=== PATIENT | male | born 1955 | race Caucasian/White ===

== ENCOUNTER 2018-12-07 15:16 | Inpatient (IN) ==
[2018-12-07 15:59] LABS: BASO# 0.02 X1000 (0.0-0.2); BASO% 0.1 % (0.0-0.8); EOS# 0.14 X1000 (0.0-0.7); EOS% 0.8 % (0.0-10.0); HEMATOCRIT 33.1 % (42.0-52.0); HEMOGLOBIN 11.9 g/dL (14.0-18.0); IMM GRAN# 0.06 X1000 (0.0-0.04); IMM GRAN% 0.3 % (0.0-0.5); LYMPH# 1.01 X1000 (1.2-3.4); LYMPH% 5.7 % (20.5-51.1); MCH 31.2 PG (27-31); MCV 86.9 FL (81-99); MONO% 7.9 % (1.7-9.3); MPV 11.4 FL (7.4-10.4); NEUT# 15.13 X1000 (1.4-6.5); NEUT% 85.2 % (42.2-75.2); PLT 168 X1000 (130-400); RBC 3.81 XMIL (4.7-6.1); RDW 11.7 % (11.5-14.5); WBC 17.76 X1000 (4.8-10.8)
[2018-12-07 16:25] LABS: INFLUENZA A NEGATIVE (NEGATIVE); INFLUENZA B NEGATIVE (NEGATIVE)
[2018-12-07 16:25] LABS: ALBUMIN 3.9 g/dL (3.5-5.0); CALCIUM 8.8 mg/dL (8.8-10.2); POTASSIUM 4.9 mmol/L (3.5-5.1); TOTAL BILIRUBIN 0.5 mg/dL (0.20-1.00); TOTAL PROTEIN 7.6 g/dL (6.3-8.3)
[2018-12-07] MEDS ORDERED: NS 1,000 ML IV ONE ×2 (16:29→20:40)
[2018-12-07 16:32] LABS: BANDS 3 % (0-1); EOS 1 % (1-10); LYMPHS 4 % (21-51); MONO 5 % (1-9); SEGS 87 % (42-75)
[2018-12-07 16:33] LABS: HYPOCHROM 1+
--- NOTE | 2018-12-07 16:36 | Diag Imaging Result Doc PS360 ---
CHEST-2 VIEWS - 12/07/2018 INDICATION: epigastric pain with hx of 2 mi's COMPARISON: 10/29/2018 FINDINGS: Lung volumes are low. No focal infiltrates, pneumothorax, or pleural effusion. Heart size and pulmonary vascularity is normal. IMPRESSION: No acute disease or change from prior. Electronically signed by Cesario Tobias 12/07/2018 4:33 PM
[2018-12-07] MEDS ORDERED: VANCOMYCIN 1 GM/NS 1 GM/250 ML IVPB IV ONE (16:47)
[2018-12-07 17:01] LABS: CK INDEX 2.2 (0.0-2.5); CK-MB 13.48 ng/mL (0.0-5.0)
[2018-12-07] MEDS ORDERED: SODIUM CHLORIDE 0.9% INJ ONE (17:01)
[2018-12-07] MEDS ORDERED: ZOFRAN IM ONE (17:01)
[2018-12-07] MEDS ORDERED: PROTONIX IV ONE (17:01)
[2018-12-07] MEDS ORDERED: ZOFRAN IV ONE (17:09)
--- NOTE | 2018-12-07 17:30 | Diag Imaging Result Doc PS360 ---
TOE(S)-LEFT - 12/07/2018 INDICATION: OM TECHNIQUE: Three views COMPARISON: None FINDINGS: There has already been amputation of the second toe. There is nonspecific soft tissue swelling about the great toe. No soft tissue gas or foreign body. No fractures or bony erosions. IMPRESSION: Mild nonspecific soft tissue swelling about the great toe but no bony abnormalities. Electronically signed by Cesario Tobias 12/07/2018 5:27 PM
[2018-12-07] MEDS ORDERED: TYLENOL PO ONE (17:46)
[2018-12-07 19:13] LABS: OCCULT BLOOD 1 NEGATIVE (NEGATIVE)
[2018-12-07 19:28] LABS: CK-MB 10.66 ng/mL (0.0-5.0)
--- NOTE | 2018-12-07 20:12 | Diag Imaging Result Doc PS360 ---
CT ABDOMEN/PELVIS W/O CONTRAST - 12/07/2018 INDICATION: gallstone COMPARISON: 03/13/2016 FINDINGS: The lung bases are clear and the heart size is normal. There is no evidence of gallstone or biliary obstruction. The gallbladder appears normal. There is an IVC filter in good position stable from prior. No radiodense renal stones. No hydronephrosis or hydroureter. Urinary bladder and rectum are normal. No bowel obstruction or inflammation. There are moderate degenerative changes of the spine. No acute or suspicious bony lesion. IMPRESSION: No acute disease or change from prior. This exam was performed using automated exposure control, adjustment of mA or kV according to patient size, and/or use of iterative reconstruction technique Electronically signed by Cesario Tobias 12/07/2018 8:09 PM
[2018-12-07] MEDS ORDERED: ZOFRAN IV PRN (20:46)
[2018-12-07] MEDS ORDERED: ZOSYN 2.25 GM in NS 50 ML IV SCH (22:00)
--- NOTE | 2018-12-07 22:56 | PROVIDER DOCUMENTATION ---
This chart was entered by Radha Jackson Scribe, acting as scribe for Steph Quiles MD. HPI-General Adult - General Chief Complaint: Fever Stated Complaint: REFLUX / CHILLS Time Seen by Provider: 12/07/18 16:28 Source: patient Allergies/Adverse Reactions: Patient Allergies Allergy/AdvReac Type Severity Reaction Status Date / Time No Known Allergies Allergy Verified 06/26/17 23:21 Home Medications: Home Medication List Medication Instructions Recorded Confirmed Last Taken Type Carvedilol [Coreg] 12.5 mg PO BID 03/13/16 10/12/18 07/19/16 09:30 History Nitroglycerin [Nitrostat] 0.4 mg SL DIRECTED PRN 03/13/16 10/12/18 01/10/16 History Aspirin EC 81 mg PO DAILY 04/19/16 10/12/18 07/19/16 09:30 History LISINOpril [Prinivil] 10 mg PO DAILY 07/13/16 10/12/18 07/19/16 09:30 History Atorvastatin Calcium [Lipitor] 40 mg PO HS 06/27/17 10/12/18 Unknown History Isosorbide Mononitrate [Imdur] 30 mg PO DAILY 06/27/17 10/12/18 Unknown History Amlodipine [Norvasc] 5 mg PO DAILY 10/12/18 10/12/18 Unknown History Famotidine [Pepcid] 20 mg PO DAILY 10/12/18 10/12/18 Unknown History Insulin Detemir [Levemir] 60 units SQ DAILY 10/12/18 10/12/18 Unknown History Prasugrel [Effient] 10 mg PO DAILY 10/12/18 10/12/18 Unknown History - History of Present Illness -Gen Adult Nature of Presenting Problems: Pt sts that he has had abd pain, n/v, fever and chills for the last 8 hrs. He s ts that he just feels achy all over and has fatigue. Pt has hx of 3 stents, Bladder cancer, DM and HTN. Pt has had amputations to all toes on R foot and 2nd toe on L foot. Has ulcers to L foot on great toe and along dorsal underside, pt sts that he has an appt with wound care next week. Location of Pain/Injury: reports: abdomen Pain Radiation: reports: no radiation Quality of Pain: reports: aching Severity: reports: moderate Onset/Duration: reports: this morning Timing: reports: still present Context/Activities at Onset: reports: none Modifying Factors: improves with: nothing Associated Symptoms: reports: fever/chills, nausea, vomiting, weakness. denies: diarrhea, headaches, syncope Similar Symptoms Previously?: No Recently seen or treated by another doctor?: No Review of Systems - Adult - REVIEW OF SYSTEMS - ADULT Constitutional: reports: chills, fever Eyes: reports: no symptoms reported Ears, Nose, Mouth & Throat: reports: no symptoms reported Cardiovascular: reports: no symptoms reported. denies: chest pain, edema Respiratory: reports: no symptoms reported. denies: cough, shortness of breath, wheezing Gastrointestinal: reports: abdominal pain, nausea, vomiting. denies: constipation, diarrhea Genitourinary: reports: no symptoms reported Musculoskeletal: reports: no symptoms reported Integumentary: reports: no symptoms reported Neurological: reports: no symptoms reported. denies: dizziness/vertigo, headac he/migraines Psychiatric: reports: no symptoms reported Endocrine: reports: no symptoms reported Hematologic/Lymphatic: reports: no symptoms reported Allergic/Immunologic: reports: no symptoms reported All Other Systems: Reviewed and Negative Past History - Adult - PAST MEDICAL HISTORY-ADULT Review of Records: reports: Old Records Reviewed, Nursing Assessment Review, M edications Reviewed, Social history reviewed & non-contributory. Cardiovascular: reports: blood clots (PE), CAD, HTN Psychiatric: reports: depression Endocrine/Immune: reports: Diabetes - PRIOR SURGERIES/PROCEDURES Surgical/Procedure History: reports: orthopedic (extremity), other ([employer]) - IMMUNIZATION STATUS Childhood Immunizations: See Nurse Assessment Flu Vaccine: See Nurse Assessment - FAMILY HISTORY Family History: reviewed, not pertinent - SOCIAL HISTORY Smoking: denies, non-smoker Substance Use: none/never Alcohol Use Frequency: never Physical Exam-General - PHYSICAL EXAM-ADULT Initial Vital Signs Reviewed: Yes - CONSTITUTIONAL General Appearance: appears well, alert, no apparent distress - EYES Eyes: PERRL/EOMI, pink conjunctivae - HEAD, EARS, NOSE, MOUTH & THROAT HENMT: normocephalic/atraumatic, moist mucous membranes, normal ENT inspection, TMs normal - NECK Neck: non-tender, full range of motion, supple, normal inspection - RESPIRATORY Respiratory: lungs clear - CARDIOVASCULAR Cardiovascular: normal peripheral pulses, no edema, tachycardia (104) - GASTROINTESTINAL (ABDOMEN) Abdominal Exam: normal bowel sounds, non tender, soft - LYMPHATIC Lymphatic: no adenopathy - MUSCULOSKELETAL Back Exam: normal inspection, no CVA tenderness, no vertebral tenderness Extremity: other (pt has had amputation of all toes on R foot and 2nd toe on L foot. Pt has pencil sided ulcerations both on L great toe and dorsal underside of foot as well. Ulceration is black w/ callous around it.) - SKIN Integumentary: normal color, warm/dry - NEUROLOGIC Neurologic: grossly normal - PSYCHIATRIC Psych/Mental Status: normal mood/affect, normal thought content, normal thought process, oriented x 3 Progress - PLAN OF CARE/RESULTS Progress/Plan/Lab Results: Vital Signs - 8 hr 12/07/18 15:28 Temperature 100.4 F H Pulse Rate 104 H Respiratory Rate 20 Blood Pressure 163/64 O2 Sat by Pulse Oximetry 98 Laboratory Results - last 24 hr 12/07/18 12/07/18 12/07/18 15:30 15:41 15:41 WBC RBC Hgb Hct MCV MCH MCHC RDW Std Deviation Plt Count MPV Immature Gran % (Auto) Neut % (Auto) Lymph % (Auto) [place] % (Auto) Eos % (Auto) Baso % (Auto) Immature Gran # (Auto) Neut # (Auto) Lymph # (Auto) [place] # (Auto) Eos # (Auto) Baso # (Auto) Segmented Neutrophils Band Neutrophils Lymphocytes Monocytes Eosinophils Hypochromia Sodium Potassium Chloride Carbon Dioxide Anion Gap BUN Creatinine Estimated GFR/1.73 m2 BUN/Creatinine Ratio Glucose Calculated Osmolality Calcium Total Bilirubin AST ALT Alkaline Phosphatase Creatine Kinase 626 H Troponin T 0.095 H Total Protein Albumin Globulin Albumin/Globulin Ratio Influenza A (Rapid) NEGATIVE Influenza B (Rapid) NEGATIVE 12/07/18 12/07/18 15:41 15:41 WBC 17.76 H RBC 3.81 L Hgb 11.9 L Hct 33.1 L MCV 86.9 MCH 31.2 H MCHC 36.0 RDW Std Deviation 11.7 Plt Count 168 MPV 11.4 H Immature Gran % (Auto) 0.3 Neut % (Auto) 85.2 H Lymph % (Auto) 5.7 L [place] % (Auto) 7.9 Eos % (Auto) 0.8 Baso % (Auto) 0.1 Immature Gran # (Auto) 0.06 H Neut # (Auto) 15.13 H Lymph # (Auto) 1.01 L [place] # (Auto) 1.40 H Eos # (Auto) 0.14 Baso # (Auto) 0.02 Segmented Neutrophils 87 H Band Neutrophils 3 H Lymphocytes 4 L Monocytes 5 Eosinophils 1 Hypochromia 1+ Sodium 133 L Potassium 4.9 Chloride 97 L Carbon Dioxide 20 L Anion Gap 16 BUN 49 H Creatinine 2.0 H Estimated GFR/1.73 m2 34 BUN/Creatinine Ratio 25 Glucose 399 H Calculated Osmolality 296 Calcium 8.8 Total Bilirubin 0.50 AST 23 ALT 25 Alkaline Phosphatase 112 Creatine Kinase Troponin T Total Protein 7.6 Albumin 3.9 Globulin 4.0 Albumin/Globulin Ratio 1.0 Influenza A (Rapid) Influenza B (Rapid) Orders Category Date Time Status CHEST-2 VIEWS [RAD] Stat Exams 12/07/18 15:33 Completed TOE(S)-LEFT [RAD] Stat Exams 12/07/18 16:47 Ordered CBC WITH DIFF [HEME] Stat Lab 12/07/18 15:41 Completed CK PROFILE [SP CHEM] Stat Lab 12/07/18 15:41 Results COMPREHENSIVE METABOLIC PANEL [CHEM] Stat Lab 12/07/18 15:41 Completed Flu [INFLUENZA SCREEN PL] Stat Lab 12/07/18 15:30 Completed TROPONIN T Stat Lab 12/07/18 15:41 Completed 0.9% Sodium Chloride Inj [Ns] 1,000 ml Med 12/07/18 16:29 Active IV 999 mls/hr EKG [EKG] Stat Ther 12/07/18 15:33 Ordered Result Diagrams: 12/07/18 15:41 12/07/18 15:41 - EKG 1 Time of EKG reading by physician:: 15:37 EKG Read and Signed by:: Aleksandra Dunn EKG Interpretation (*Must complete 3 of following elements*): Abnormal (sinus tachycardia, Cannot rule out inferior infarct, age undetermined, Anteroseptal infarct, age undetermined, Abnormal ECG) Rate: 106 Rhythm: sinus tachycardia [place]: normal - XRAY 1 XRAY: Bilateral XRAY Study: Chest Impression: Normal (MPRESSION: No acute disease or change from prior. Electronically signed by Cesario Tobias 12/07/2018 4:33 PM 12/07/18 1633 Interpreting Physician: Cesario Tobias MD Dictated Date/Time: 12/07/18 1632) Departure - Departure Date of Disposition Decision: 12/07/18 Time of Disposition Decision: 22:55 DIAGNOSIS: GIB (gastrointestinal bleeding), Sepsis Disposition: HOME 01 Certified Medical Emergency: Emergent Condition: Stable - Critical Care Note This patient required my direct & personal management of CC.: No Attestation - Physician/ ELSIE Attestation Patient care was provided by Advanced Practice Provider:: No The physician spent face to face time with patient:: Yes Advanced Practice Provider documentation review:: Supervising physician onsite and consulted in the evaluation and care of this patient. The physician did have a face to face encounter with the patient. This chart was documented by the indicated scribe, (Radha Jackson, Scribe) and accurately reflects the services I performed and decisions made by me, Steph Quiles MD, as attested by the provider's signature.
[2018-12-08] MEDS: PRILOSEC PO SCH ×3 (00:16→20:56)
[2018-12-08] MEDS: NS 1,000 ML IV SCH ×4 (00:17→22:01)
[2018-12-08] MEDS: ZYVOX 600 MG/D5W 600 MG/300 ML IVPB IV SCH ×2 (00:24→11:39)
[2018-12-08 03:50] LABS: BLOOD TYPE ARTERIAL; METHB 0.6 % (0.0-1.5); O2HB 94.5 % (95.0-99.0); PCO2(98.6) 33 mmHg (35-45); PO2(98.6) 72 mmHg (60-100); SAMPLE BLOOD; SAO2 96.8 % (95.0-100.0); THB 9.7 g/dL (11.5-17.4); pH(98.6) 7.38 (7.35-7.45)
[2018-12-08 03:55] LABS: ALLEN TEST YES; MODALITY ROOM AIR
[2018-12-08] MEDS ORDERED: ZOSYN 2.25 GM in NS 50 ML IV SCH (06:00)
[2018-12-08] MEDS: ZOSYN 2.25 GM in NS 50 ML IV SCH ×3 (06:04→20:55)
[2018-12-08] MEDS: HUMALOG (PARKWAY) SUBQ SCH ×5 (06:04→20:57)
[2018-12-08 07:04] LABS: BASO# 0.02 X1000 (0.0-0.2); BASO% 0.3 % (0.0-0.8); EOS% 1.3 % (0.0-10.0); HEMATOCRIT 27.6 % (42.0-52.0); HEMOGLOBIN 9.5 g/dL (14.0-18.0); IMM GRAN# 0.01 X1000 (0.0-0.04); IMM GRAN% 0.1 % (0.0-0.5); LYMPH# 0.91 X1000 (1.2-3.4); LYMPH% 11.5 % (20.5-51.1); MCH 30.6 PG (27-31); MCHC 34.4 g/dL (33-37); MONO# 0.84 X1000 (0.11-0.59); MONO% 10.6 % (1.7-9.3); MPV 11.7 FL (7.4-10.4); NEUT# 6.06 X1000 (1.4-6.5); NEUT% 76.2 % (42.2-75.2); PLT 126 X1000 (130-400); RDW 11.9 % (11.5-14.5); WBC 7.94 X1000 (4.8-10.8)
[2018-12-08 07:05] LABS: HEMOGLOBIN A1C 11.6 % (4.8-6.0)
[2018-12-08 07:25] LABS: CALCIUM 7.6 mg/dL (8.8-10.2); CREATININE 2.1 mg/dL (0.7-1.2); POTASSIUM 4.4 mmol/L (3.5-5.1); TOTAL BILIRUBIN 0.5 mg/dL (0.20-1.00); TOTAL PROTEIN 6.3 g/dL (6.3-8.3)
[2018-12-08 08:54] LABS: CK INDEX 1.9 (0.0-2.5); CK-MB 7.01 ng/mL (0.0-5.0)
--- NOTE | 2018-12-08 09:21 | HISTORY AND PHYSICAL ---
PRIMARY CARE PHYSICIAN: Dr. Tiffanie Webster. CHIEF COMPLAINT: Abdominal pain, nausea, vomiting, fever and chills for 8 hours prior to arrival. HISTORY OF PRESENTING ILLNESS: This is a 63-year-old male who presents to [facility] ER with complaints of generalized abdominal pain, nausea, vomiting, fever, chills, that began 8 hours prior to arriving and progressively worsened. He is noted to have a diabetic foot ulcer to his left great toe and along the dorsal underside. He states that he has an appointment with Wound Care next week. He has already had all 5 of his toes amputated from the right foot. When he arrived to the emergency room, he had a temperature of 100.4 degrees. Approximately 2 hours later, it went up to 101.8. His white blood cell count on arrival was 17.76, hemoglobin and hematocrit were 11.9 and 33. He did throw up while he was in the emergency room, and they tested his gastric occult and it was positive. Stool for occult blood was negative. His blood sugar was 399 on arrival, BUN of 49, creatinine of 2, which appears to be around his baseline. Cardiac enzymes first set showed a creatine kinase of 626 with a CK-MB of 13.48 and a troponin of 0.095. We repeated it approximately 2 hours later. Creatine kinase was down to 546 with a CK-MB of 10.66 and a normal troponin at 0.086. This morning, we rechecked his troponin and it was up to 0.125, so he is being admitted to the medical unit for further evaluation and treatment. PAST MEDICAL HISTORY: 1. Bladder cancer. 2. Diabetes type 2. 3. Hypertension. 4. Left diabetic foot ulcer at the great toe. 5. Pulmonary emboli. 6. Coronary artery disease. 7. Depression. 8. Chronic kidney disease stage IIIB. PAST SURGICAL HISTORY: 1. Heart stents x3. 2. Right toe amputation times all 5 toes. 3. Left 2nd toe amputation. 4. [place] filter placement. FAMILY HISTORY: Reviewed and noncontributory. SOCIAL HISTORY: Currently lives alone. Denies any tobacco, alcohol, or illicit drug use. ALLERGIES: He has no known drug allergies. HOME MEDICATIONS: A current list will need to be obtained, reviewed, and then restarted as appropriate. We will place an order for Nursing to update and confirm home medications. LABORATORY DATA: White blood cell count of 17.76, hemoglobin 11.9, hematocrit 33.1, platelets 168,000. ABGs showed a pH of 7.38, pCO2 33, pO2 72, bicarb 21, all on room air. Sodium was 133, potassium 4.9, chloride 97, CO2 20, BUN of 49, creatinine 2, glucose 399. Hemoglobin A1c is 11.6. Creatine kinase first set 626 with a CK-MB of 13.48 and troponin 0.095. Second set showed a creatine kinase of 546, CK-MB 1066, troponin 0.086. This morning, troponin is 0.125. Lipase was 87. Gastric occult blood was positive. Stool for occult blood was negative. Influenza A and B were both negative. We did a chest x-ray that showed no acute disease or change from prior. A left toe x-ray showed mild nonspecific soft tissue swelling about the great toe, but no bony abnormalities. We did a CT of the abdomen and pelvis that showed no acute disease or change from prior. REVIEW OF SYSTEMS: He was positive for a subjective fever, chills. Denied any blurred vision, dizziness, chest pain, coughing, shortness of breath. He had generalized abdominal pain, nausea, vomiting. Denied any diarrhea, constipation, burning, or hurting with urination. PHYSICAL EXAMINATION: VITAL SIGNS: On arrival, temperature was 100.4 degrees, pulse 104, respirations 20, blood pressure 163/64, saturating 98% on room air. About 2 hours after arrival, he did have a temperature of 101.8 degrees. This morning, his temperature is down to 98.7 degrees. GENERAL: This is a 63-year-old, morbidly obese male who is lying in the bed; answers questions appropriately. HEENT: Normocephalic, atraumatic. Normal ENT inspection. Oropharynx and nares are clear. EYES: Pupils are equal, round, and reactive to light and accommodation. Extraocular movements are intact. NECK: Normal inspection, normal range of motion. LUNGS: Clear to auscultation bilaterally with equal lung expansion and chest wall movement. HEART: Regular rate and rhythm. No murmurs, rubs, or gallops. ABDOMEN: Soft, not distended. Bowel sounds are present x4 quadrants. EXTREMITY: Noted to have erythema to Left great toe with scabbed area to outer portion and scab to dorsal area of great toe also. No drainage noted at this time. Has had previous amputation to Left 2nd toe and Right toe x5. MUSCULOSKELETAL: He has 5/5 strength x4 extremities. NEUROLOGICAL: The cranial nerves 2 through 12 appear grossly intact. ASSESSMENT: 1. Left great toe diabetic ulcer. 2. Leukocytosis. 3. Elevated troponin. 4. Diabetes type 2 with hyperglycemia, uncontrolled. 5. Chronic kidney disease stage III-B. 6. Hypertension. PLAN: 1. He was admitted to the medical unit at [facility] and placed on a diabetic diet. 2. We will place him on telemetry. 3. We will consult Cardiology for his elevated troponin. 4. We will consult Wound Care. 5. He is on patterned blood sugars with sliding scale insulin. 6. Normal saline at 100 mL an hour. 7. Omeprazole 40 mg p.o. b.i.d. 8. Zofran 4 mg IV q.6 p.r.n. 9. Zosyn 2.25 g IV q.6. 10. Zyvox 600 mg IV q.12. 11. We will recheck a CBC and BMP in the a.m. 12. Again, we will need to update and confirm home medications, review those, and restart as appropriate. 13. Further orders after seen by Attending and by oracle identity management consultant. Dictated by YASHIRA Kat for Alexander Huerta MD cc: YASHIRA Kat MD Belinda Maples [facility] HOSPITALChloe
--- NOTE | 2018-12-08 10:29 | HISTORY AND PHYSICAL ---
ADDENDUM: Mr. Kelly was admitted overnight, mainly because of nausea, vomiting, chills. Upon presenting to the emergency department, he was found to have a temperature of 100.4 degrees, which went up to 101.8 degrees, with a pulse of 117. I have reviewed all his lab work and his imaging studies. A chest x-ray which was done showed no acute disease. His CT scan of the abdomen and pelvis showed no disease. Remarkably, he does have some distal ulceration over the left big toe which has surrounding swelling and erythematous changes. He also has a small ulceration under the left 5th toe, also with small surrounding erythematous changes. ASSESSMENT: 1. Sepsis on presentation, likely due to skin and soft tissue infection. 2. Left great toe diabetic ulcer with surrounding cellulitis. 3. Minimally elevated troponin, likely due to demand mismatch. 4. Severe uncontrolled diabetes mellitus. 5. Chronic kidney disease, stage IIIB noted. PLAN: 1. Continue with the current antibiotic coverage. 2. Blood cultures have been done. 3. Continue monitoring the ulcers on the left toe. We will get Wound Care to also evaluate the wound. Please refer to the details of the History and Physical in the chart dictated by the nurse practitioner. cc: Alexander Huerta MD
--- NOTE | 2018-12-08 15:29 | EKG Report ---
Test Performed on : 12/07/2018 3:37:00 PM Test Reason : epigastric pain hx of 2 mi's Blood Pressure : / mmHG Vent. Rate : 106 BPM Atrial Rate : 106 BPM P-R Int : 138 ms QRS Dur : 098 ms QT Int : 342 ms P-R-T Axes : 003 -25 056 degrees QTc Int : 454 ms Sinus tachycardia. Cannot rule out Inferior infarct , age undetermined Anteroseptal infarct (cited on or before 04-FEB-2016) Abnormal ECG When compared with ECG of 30-OCT-2018 00:35, Vent. rate has increased BY 39 BPM Minimal criteria for Inferior infarct are now present Questionable change in initial forces of Anteroseptal leads Unconfirmed Result
--- NOTE | 2018-12-08 15:30 | EKG Report ---
Test Performed on : 12/07/2018 6:45:47 PM Test Reason : REPEAT Blood Pressure : / mmHG Vent. Rate : 098 BPM Atrial Rate : 098 BPM P-R Int : 148 ms QRS Dur : 096 ms QT Int : 352 ms P-R-T Axes : 019 -01 077 degrees QTc Int : 449 ms Sinus rhythm. with premature atrial complexes. Anteroseptal infarct (cited on or before 04-FEB-2016) Abnormal ECG When compared with ECG of 07-DEC-2018 15:37, (Unconfirmed) premature atrial complexes. are now present Unconfirmed Result
[2018-12-08] MEDS ORDERED: HUMALOG (PARKWAY) SUBQ ONE (18:11)
--- NOTE | 2018-12-08 18:11 | CONSULTATION ---
DATE OF CONSULTATION: 12/08/2018 IMPRESSION: 1. Mildly elevated troponin. 2. Atherosclerotic coronary disease. A. Status post previous coronary angioplasty/stent approximately 2 years ago. B. Status post emergent coronary angioplasty/stenting in August 2018 while in [place], [place] area. C. Admission for abnormal troponin 1 month ago after presenting to [facility]. Patient was admitted to [facility] in [place], [place]. He reports he did not have coronary angiography. 3. Diabetes mellitus type 2, poorly controlled. 4. Left diabetic foot ulcer at the great toe. 5. Hypertension. 6. Chronic kidney disease stage 3B. 7. 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 8. Previous pulmonary embolus. Patient is status post Tony filter. 9. Obesity. 10. Leukocytosis on current presentation. RECOMMENDATIONS: 1. Echocardiography. 2. Continue current medical management of patient's coronary atherosclerosis. 3. Ultimately patient would benefit from repeat coronary angiography, particularly in light of history of recent coronary angioplasty/stent in August 2018. This was discussed with the patient and in particular was pointed out that there are concerns about his renal function and the potential for nephrotoxicity with contrast dye. He acknowledged this and understands. HISTORY: This 63-year-old white male with past history of atherosclerotic coronary disease as outlined above, poorly controlled type 2 diabetes mellitus, hypertension, diabetic foot ulcers, previous pulmonary emboli, obesity, and chronic kidney disease stage 3B was admitted to [facility] with abdominal pain, nausea, vomiting, fever and chills that started the day of admission. He was found to have fever and leukocytosis. He was also found to have very mildly elevated troponin which on subsequent repeat increased a modest amount to 0.125. For this reason, Cardiology was consulted. He has had no chest pain. However, he has not had chest pain in association with his coronary disease. He relates having a coronary stent 2 years ago. While visiting [place], [place] he had emergency coronary angioplasty/stenting for severe coronary instability. There was no chest pain associated with this. He has been on aspirin and Effient since then. Last month he was seen in the emergency room at [facility] after he experienced a syncopal episode while in cardiac rehab. CPR was administered by the staff for approximately 20 seconds after which he came around and became responsive. His troponin was very mildly elevated at 0.122. [facility] had no bed availability and he ultimately was transferred to [facility] in [place]. He relates he had an echocardiography but did not have a cardiac catheterization study there apparently due to concerns regarding his renal function. He has not had any chest discomfort. There has been no orthopnea. His present admission came after he presented with generalized abdominal pain, nausea, vomiting, fever and chills that began 8 hours prior to arriving and progressively worsened. He has an active diabetic foot ulcer near his left great toe and has been followed in the [facility] for this. PAST MEDICAL HISTORY: 1. Atherosclerotic coronary disease as outlined above. 2. Type 2 diabetes mellitus, poorly controlled. 3. Hypertension. 4. Left diabetic foot ulcer at the great toe. 5. Pulmonary emboli in the past. Patient is status post Tony filter. 6. Chronic kidney disease stage 3B. 7. Obesity. 8. Obstructive sleep apnea. He does use CPAP. 9. Depression. 10. Status post amputation of all 5 toes from right foot and left 2nd toe amputation. ALLERGIES: He has no known drug allergies. MEDICATIONS PRIOR TO ADMISSION: As listed. SOCIAL HISTORY: He lives alone. He does not smoke or use alcohol. FAMILY HISTORY: Positive for coronary disease. REVIEW OF SYSTEMS: Pulmonary: Negative for dyspnea, orthopnea. There has been no chest pain. Gastrointestinal: Noteworthy for abdominal discomfort, nausea and vomiting prior to admission. He has not noted hematemesis nor melena. There has been no bright red blood per rectum. Constitutional: Noteworthy for fever. Remainder review of systems negative/noncontributory with 14 total systems reviewed. PHYSICAL EXAM: An obese, older middle-aged white male in no distress on room air.Vital signs: Blood pressure 155/68, heart rate 72, oxygen saturation 99% on room air. HEENT: Extraocular movements intact. Mucous membranes are moist. Neck: Supple without jugular venous distention. There are no carotid bruits. Chest: Clear to auscultation bilaterally. Cardiac Exam: Reveals a regular rate and rhythm without appreciable murmur or gallop. Abdomen: Soft. Bowel sounds audible. Extremities: Without edema. Neurologic: Reveals him to be alert and fully oriented. Speech is fluent. He moves all 4 extremities equally well. Skin: Warm and dry. Psychiatric: Reveals his mood to be appropriate. DATA: A 12 lead EKG obtained on admission demonstrates sinus rhythm with premature atrial complex and anteroseptal infarct of undetermined age. LABORATORY DATA: Includes white blood cell count 7.94, hematocrit 27.6, hemoglobin 9.5, platelet count 126,000. Sodium 135, potassium 4.4, chloride 103, carbon dioxide 19, BUN 44, creatinine 2.1, glucose 403. Hemoglobin A1c 11.6. Initial CPK 546 with a CPK/MB of 10.66 and a CPK/MB index of 2.0, followup CPK 378 with a CPK/MB of 7.01 and CPK/MB index 1.9. Initial troponin 0.086 with followup troponin 0.125. Urinalysis noteworthy for 3+ proteinuria. cc: Partha Díaz MD
[2018-12-09] MEDS: ZYVOX 600 MG/D5W 600 MG/300 ML IVPB IV SCH ×2 (00:50→12:20)
[2018-12-09] MEDS: NS 1,000 ML IV SCH ×2 (02:58→16:06)
[2018-12-09] MEDS: ZOSYN 2.25 GM in NS 50 ML IV SCH ×4 (04:29→21:06)
[2018-12-09 06:25] LABS: BASO# 0.01 X1000 (0.0-0.2); BASO% 0.2 % (0.0-0.8); EOS# 0.27 X1000 (0.0-0.7); EOS% 4.4 % (0.0-10.0); HEMATOCRIT 27.5 % (42.0-52.0); HEMOGLOBIN 9.4 g/dL (14.0-18.0); IMM GRAN# 0.03 X1000 (0.0-0.04); IMM GRAN% 0.5 % (0.0-0.5); LYMPH# 1.57 X1000 (1.2-3.4); LYMPH% 25.8 % (20.5-51.1); MCH 30.7 PG (27-31); MCHC 34.2 g/dL (33-37); MCV 89.9 FL (81-99); MONO# 0.74 X1000 (0.11-0.59); MONO% 12.2 % (1.7-9.3); MPV 11.2 FL (7.4-10.4); NEUT# 3.47 X1000 (1.4-6.5); NEUT% 56.9 % (42.2-75.2); PLT 129 X1000 (130-400); RBC 3.06 XMIL (4.7-6.1); RDW 11.9 % (11.5-14.5); WBC 6.09 X1000 (4.8-10.8)
[2018-12-09 06:43] LABS: CALCIUM 7.7 mg/dL (8.8-10.2); CREATININE 1.9 mg/dL (0.7-1.2); POTASSIUM 4.2 mmol/L (3.5-5.1)
[2018-12-09] MEDS: HUMALOG (PARKWAY) SUBQ SCH ×7 (06:44→21:10)
[2018-12-09] MEDS ORDERED: BASAGLAR SUBQ SCH (09:00)
[2018-12-09] MEDS: PRILOSEC PO SCH ×2 (09:27→21:09)
--- NOTE | 2018-12-09 12:05 | PROGRESS NOTE ---
DATE: 12/09/2018 SUBJECTIVE: This morning Mr. Kelly refers to be feeling a lot better. No fever, no chills. Still has some pain to the ulceration on the left foot. OBJECTIVE: Vital signs: Blood pressure is 167/54, pulse 58, respirations 20, temperature 97.7 degrees. Patient was saturating 98% on room air. General: Mr. Kelly is a 63-year-old male. He is in bed. He was not in any cardiopulmonary distress. Mucosa is pink and moist. Anicteric and acyanotic. Neck: Supple. Chest: Good air entry bilaterally. There are no crepitations, no rhonchi. Cardiovascular: Regular rate and rhythm. No murmurs, no rubs, no gallops. Abdomen: Soft, distended, but nontender. Bowel sounds present. Extremities: No pedal edema. There is some ulceration over the left big toe with some surrounding erythematous changes. There is also some small ulceration under the 5th toe with some surrounding erythematous changes. LABORATORY DATA: WBC is down to 6.09, hemoglobin is 9.4, platelet count of 129,000. Chemistry is also reviewed. Sodium is up to 137, potassium is 4.2, chloride is 106, bicarb is 19, creatinine is down to 1.9, glucose is also down to 223. The patient's A1c was 11.6. ASSESSMENT: 1. Sepsis on presentation secondary to skin and soft tissue infection. Vitals are stable. We are still pending blood cultures. Patient is currently on IV antibiotics and he seems to be doing a lot better. 2. Left big toe diabetic ulcer with surrounding cellulitis. This seems to be getting slightly better. We are going to do an MRI of the foot, including the toes, to rule out any bone involvement. 3. Uncontrolled diabetes mellitus with presenting A1c of 11.6. The patient is currently on insulin regimen. We will continue to titrate his insulin needs. 4. Minimally elevated troponin, likely due to demand mismatch. However, an underlying coronary artery disease is highly possible. Patient has been evaluated by Cardiology. I think there is a plan for inpatient left heart catheterization. We will follow up with their further recommendations. 5. Chronic kidney disease stage 3B. Noted. 6. History of coronary artery disease, status post stents in the past. The patient is on aspirin and prasugrel. This has been restarted. Statins have also been restarted, as well as his other home medications. Patient has been evaluated by Cardiology as well. PLAN: So in general, I think Mr. Kelly is a lot better today. He has not had any more chills or fever. We are still pending the blood cultures. The patient is currently on antibiotics. We will narrow this down once we know the blood culture report. We will also do an MRI of the foot tomorrow to rule out osteomyelitis. The patient is being evaluated by Cardiology and there is a plan for possible left heart catheterization. We will follow up with them in that regard. An echocardiogram is pending. cc: Alexander Huerta MD MTDD
[2018-12-09] MEDS: ASPIRIN EC PO SCH (12:20)
[2018-12-09] MEDS: COREG PO SCH ×2 (12:21→21:09)
[2018-12-09] MEDS: IMDUR PO SCH (12:21)
[2018-12-09] MEDS: PEPCID PO SCH ×2 (12:21→21:09)
[2018-12-09] MEDS: EFFIENT PO SCH (12:21)
[2018-12-09] MEDS: PRINIVIL PO SCH (12:21)
[2018-12-09] MEDS ORDERED: DESYREL PO SCH (21:00)
[2018-12-09] MEDS ORDERED: LIPITOR PO SCH (21:00)
[2018-12-09] MEDS ORDERED: LEVEMIR INSULIN *HA SUBQ SCH (21:00)
[2018-12-09] MEDS: ZYVOX PO SCH (21:08)
[2018-12-10] MEDS: ZOSYN 2.25 GM in NS 50 ML IV SCH ×2 (03:39→09:25)
[2018-12-10] MEDS: HUMALOG (PARKWAY) SUBQ SCH ×4 (06:29→11:05)
[2018-12-10 07:07] LABS: BASO# 0.01 X1000 (0.0-0.2); BASO% 0.2 % (0.0-0.8); EOS% 4.9 % (0.0-10.0); HEMATOCRIT 26.2 % (42.0-52.0); HEMOGLOBIN 8.8 g/dL (14.0-18.0); IMM GRAN# 0.01 X1000 (0.0-0.04); IMM GRAN% 0.2 % (0.0-0.5); LYMPH# 1.66 X1000 (1.2-3.4); MCH 30.4 PG (27-31); MCHC 33.6 g/dL (33-37); MCV 90.7 FL (81-99); MONO# 0.64 X1000 (0.11-0.59); MONO% 10.4 % (1.7-9.3); MPV 11.1 FL (7.4-10.4); NEUT# 3.52 X1000 (1.4-6.5); NEUT% 57.3 % (42.2-75.2); PLT 118 X1000 (130-400); RBC 2.89 XMIL (4.7-6.1); WBC 6.14 X1000 (4.8-10.8)
[2018-12-10 07:18] LABS: CALCIUM 7.6 mg/dL (8.8-10.2); CREATININE 1.8 mg/dL (0.7-1.2)
[2018-12-10 07:26] VITALS: BP 176/71
[2018-12-10] MEDS ORDERED: NORVASC PO SCH (09:00)
[2018-12-10] MEDS: ASPIRIN EC PO SCH (09:25)
[2018-12-10] MEDS: COREG PO SCH (09:25)
[2018-12-10] MEDS: ZYVOX PO SCH (09:25)
[2018-12-10] MEDS: PRINIVIL PO SCH (09:25)
[2018-12-10] MEDS: PRILOSEC PO SCH (09:25)
[2018-12-10] MEDS: IMDUR PO SCH (09:25)
[2018-12-10] MEDS: EFFIENT PO SCH (09:25)
[2018-12-10] MEDS: PEPCID PO SCH (09:26)
[2018-12-10] MEDS: NS 1,000 ML IV SCH (11:01)
--- NOTE | 2018-12-10 14:12 | ECHO REPORT ---
ORDER DATE: 12/10/2018 ECHOCARDIOGRAM: INDICATION: Coronary disease. Abnormal troponin. FINDINGS: 1. The right atrium appears normal in size at 3.2 cm. 2. Mild tricuspid regurgitation. RV systolic pressure of 20. 3. Normal RV size and systolic function. 4. Trace pulmonic insufficiency. 5. Mild left atrial enlargement with a volume index of 32. 6. No mitral prolapse. Trace mitral regurgitation. 7. Normal LV size. End-diastolic dimension of 4.6. Mild left ventricular hypertrophy with a posterior wall thickness of 1.1. Interventricular septal wall thickness of 1.2. Normal LV systolic function with an estimated EF of 55%. On some views, there is a suggestion of mild hypokinesis of the distal anterior septum. 8. Aortic valve opens well. There is no evidence of stenosis. The valve is trileaflet with trace insufficiency. 9. Aorta appears normal in visualized segments. 10. No pericardial effusion seen. cc: MD Partha Go MD
--- NOTE | 2018-12-10 16:24 | Diag Imaging Result Doc PS360 ---
EXAM: MRI LOWER EXT W/WO CON-LEFT HISTORY: rule osteomyelitis TECHNIQUE: Routine MRI of the left toes with and without contrast. COMPARISON: None. FINDINGS: There is extensive edema about the soft tissues of the foot.. This is most marked about the dorsal aspect of the IP joint of the great toe and lateral to the fifth metatarsal head. There is a small enhancing collection about the plantar aspect of the fifth metatarsal measuring 17 x 7 mm which may represent a small abscess or phlegmon. There is a skin ulcer adjacent to the fifth metatarsal head. There is mild T2 hyperintensity/T1 hypointensity within the tuft of the great toe. There may be some mild associated enhancement. It is difficult to differentiate reactive edema from very early osteomyelitis. There is also mildly enhancing T1 hypointensity/T2 hyperintensity within the proximal phalanx of the great toe distally. There is a suggestion of cortical thinning dorsally, and this may represent early osteomyelitis. There is amputation of the second ray at the MTP joint. The remainder of the metatarsals show no confluent medullary signal, edema, or enhancement to just osteomyelitis. Sesamoids appear normal. There is tenosynovitis of the extensor minimi tendon. IMPRESSION: 1.Skin ulcer with marked edema about the fifth metatarsal head. Small adjacent plantar enhancing collection may represent a small abscess or phlegmon. 2.There are no confluent signal abnormalities to confirm osteomyelitis of the fifth metatarsal. 3.Reactive edema versus very early osteomyelitis of the tuft and dorsal distal aspect proximal phalanx of the great toe. Electronically signed by Kimberly Tena 12/10/2018 4:22 PM
--- NOTE | 2018-12-11 10:06 | DISCHARGE SUMMARY ---
ADMISSION DATE: 12/07/2018 DISCHARGE DATE: 12/10/2018 DISCHARGE DIAGNOSES: 1. Sepsis, improved. 2. History of pulmonary embolus. 3. Chronic kidney disease. 4. Left big toe diabetic foot ulceration. 5. Uncontrolled diabetes with an A1c of 11.6. 6. Elevated troponin in a patient at high risk of coronary disease status post history of stenting, currently on aspirin and prasugrel. CONSULTATIONS: Cardiology. PROCEDURES: Echocardiogram. BRIEF HOSPITAL COURSE: Patient is a 63-year-old male who presented to the hospital, treated in the usual fashion, placed on antibiotics for sepsis with broader control. Thankfully, he had an uneventful hospital course, although his troponins were elevated. Cardiology was consulted and felt as though he would better benefit from a left heart catheterization. The patient will be transferred to [facility] for a left heart catheterization. He will continue antibiotics for his foot ulceration. MRI was done, but currently is pending at time of dictation and discharge. This will need to be followed up to ascertain if he has osteomyelitis. cc: Jemal Adams MD
== END 2018-12-10 14:00 | disposition short-term general hospital (02) | DRG 872 ==
LOC: P.ED 15:16 → P.MEDSURG 21:50 → SUATTDRO 21:50
PROVIDERS: ATTEND Family Medicine
CPT/HCPCS: 71020; 71046; 73660; 73720; 74176; 80048; 80053; 82270; 82271; 82550; 82553; 82805; 82948; 83036; 83690; 84484; 85025; 85651; 87040; 87275; 87276; 87804; 93005; 93306; 96361; 96365; 96375; 99285; A9270; A9579; C8929; C9113; J1815; J2020; J2405; J2543; J3370; J7030; Q9957; S0164; XXXXX